=== PATIENT | male | born 1970 | race African-American/Black ===

== ENCOUNTER 2019-12-05 18:05 | Emergency (ER) | payer MEDICAID ==
[~2019-12-05] VITALS: Ht 177.8 cm; Wt 80.0 kg
[2019-12-05 18:19] VITALS: BP 143/77
[2019-12-05] MEDS ORDERED: ALBUTEROL SULFATE 2.5 MG/3 ML NEBU. NEB ONE (19:00)
[2019-12-05] MEDS ORDERED: DEXAMETHASONE SOD PHOS 20 MG/5 ML VIAL. PO ONE (19:00)
--- NOTE | 2019-12-05 19:14 | RAD ---
Exam: Chest 2 views INDICATION: Cough TECHNIQUE: Frontal and lateral views the chest Comparisons: None FINDINGS: The cardiomediastinal silhouette and pulmonary vessels are within normal limits. The lung and pleural spaces are clear. IMPRESSION: No acute cardiopulmonary process. Electronically signed by: Susy Ricketts MD (12/05/2019 7:11 PM) [id number]
[2019-12-05] MEDS ORDERED: ALBU2.5V8 IH (19:41)
[2019-12-05] MEDS ORDERED: OSEL75CA PO (19:41)
--- NOTE | 2019-12-05 19:41 | PHYS DOC ---
Past Medical History Past Medical History: Asthma, Schizophrenia (OG DAWSON APRN) Additional Past Surgical Histo: hernia (OG DAWSON APRN) Smoking Status: Current Every Day Smoker Alcohol Use: Occasionally (OG DAWSON APRN) Attending Signature I have participated in the care of this patient and I have reviewed and agree with all pertinent clinical information above including history, exam, and recommendations. (MENDEL GOMES MD) Adult General Chief Complaint Chief Complaint: FLU SYMPTOM HPI HPI Patient is a 49 year old AA male who presents to the emergency department with complaints of nausea, dry cough, sweats, chills, body aches, tactile fever, nausea, vomiting, and diarrhea for the last 2-3 days. Patient states he has had one episode of vomiting, and one episode of diarrhea in the last 24 hours. He denies any blood in his vomit or stool. Patient denies any abdominal pain. He states he is currently at [facility] for rehabilitation of methamphetamine abuse and they will not allow him to use his inhaler without a prescription. Patient has a history of asthma and states that he has felt wheezy with the onset of the symptoms. Currently rates his discomfort as 7 out of 10 on the pain scale, he denies any alleviating factors. Patient denies any chest pain, or palpitations. He denies any known exposure to influenza or recent travel. (OG DAWSON APRN) Review of Systems Review of Systems All other ROS is negative unless otherwise noted in HPI. (OG DAWSON APRN) Current Medications Current Medications Current Medications Medications (Trade) Dose Ordered Sig/Jeffrey Start Time Stop Time Status Last Admin Dose Admin Albuterol Sulfate (Ventolin Neb Soln) 2.5 mg 1X ONCE 12/05/19 19:00 12/05/19 19:01 DC 12/05/19 19:12 2.5 MG Dexamethasone Sodium Phosphate (Decadron) 10 mg 1X ONCE 12/05/19 19:00 12/05/19 19:01 DC 12/05/19 19:00 10 MG (MENDEL GOMES MD) Allergies Allergies Allergies Coded Allergies Type Severity Reaction Last Updated Verified No Known Drug Allergies 12/05/19 No (MENDEL GOMES MD) Physical Exam Physical Exam See Above Constitutional: Well developed, well nourished, no acute distress, ill appearance, obese HENT: Normocephalic, atraumatic, bilateral external ears normal, bilateral TMs normal, posterior pharynx normal oropharynx moist, nose congested with erythema and edema of the nasal turbinates bilaterally Eyes: PERRLA, conjunctiva injected bilaterally, no discharge. [] Neck: Normal range of motion, no stridor. [] Cardiovascular:Heart rate regular rhythm, no murmur [] Lungs & Thorax: Bilateral breath sounds clear to auscultation in upper lobes, expiratory wheezes and diminished in bilateral posterior lower lobes, Respirations even and unlabored, no retractions, no respiratory distress Skin: Warm, dry, no erythema, no rash. [] Back: No tenderness Extremities: No cyanosis, ROM intact Neurologic: Alert and oriented X 3, no focal deficits noted. [] Psychologic: Affect normal, judgement normal, mood normal. (OG DAWSON APRN) Current Patient Data Vital Signs Vital Signs Date Time Temp Pulse Resp B/P (MAP) Pulse Ox O2 Delivery O2 Flow Rate FiO2 12/05/19 19:15 98 Room Air 12/05/19 18:19 99.4 104 16 143/77 (99) 99.4 (MENDEL GOMES MD) EKG EKG [] (OG DAWSON APRN) Radiology/Procedures Radiology/Procedures PROCEDURE: CHEST PA & LATERAL Exam: Chest 2 views INDICATION: Cough TECHNIQUE: Frontal and lateral views the chest Comparisons: None FINDINGS: The cardiomediastinal silhouette and pulmonary vessels are within normal limits. The lung and pleural spaces are clear. IMPRESSION: No acute cardiopulmonary process. [] (OG DAWSON APRN) Course & Med Decision Making Course & Med Decision Making Pertinent Labs and Imaging studies reviewed. (See chart for details) Patient is a 49-year-old male who presented to the emergency department with complaints of flulike symptoms and shortness of breath for the last 2-3 days. His chest x-ray was unremarkable. He was given a breathing treatment in the emergency department. prescriptions written for an albuterol inhaler and Tamiflu. As patient likely has influenza with a history of asthma. Patient instructed to return to the emergency room if symptoms worsen. [] (OG DAWSON APRN) Dragon Disclaimer Dragon Disclaimer This electronic medical record was generated, in whole or in part, using a voice recognition dictation system. (OG DAWSON APRN) Departure Departure Impression: Primary Impression: Flu-like symptoms Additional Impression: Wheezing on expiration Disposition: HOME, SELF-CARE Condition: STABLE Referrals: NO PCP (PCP) Patient Instructions: Asthma, Adult, [id number], Influenza, Adult, [id number] Additional Instructions: Fill the prescription and take as directed. Alternate Tylenol and ibuprofen as needed for fever. Increase clear fluids and rest. Diet as tolerated. Recommend use of yvha-ohb-obrnxiv flu medications as needed for relief of your symptoms. Follow up with your primary care doctor if symptoms persist, return to the ER symptoms worsen. Scripts Oseltamivir Phosphate (TAMIFLU) 75 Mg Capsule 1 CAP PO BID for 5 Days, #10 CAP 0 Refills Prov: OG DAWSON APRN 12/05/19 Albuterol Sulfate (Proair Hfa) 8.5 Gm Hfa.aer.ad 2 PUFF IH PRN Q4-6HRS PRN for wheezing for 21 Days, #1 INHALER 0 Refills Prov: OG DAWSON APRN 12/05/19 Problem Qualifiers OG DAWSON APRN Dec 05, 2019 19:41 MENDEL GOMES MD Dec 06, 2019 01:45
== END 2019-12-05 19:52 | disposition home or self-care (01) ==
LOC: ER 18:05
DX: R11.2 Nausea with vomiting, unspecified (principal); R50.9 Fever, unspecified; R05 Cough; R19.7 Diarrhea, unspecified; J45.909 Unspecified asthma, uncomplicated; F20.9 Schizophrenia, unspecified; F17.200 Nicotine dependence, unspecified, uncomplicated; Z98.890 Other specified postprocedural states
CPT/HCPCS: 71046; 94640; 99283; J1100; J7613

== ENCOUNTER 2020-05-14 13:23 | Emergency (ER) | payer MEDICAID ==
[~2020-05-14 13:23] MED LIST: ALBU2.5V8 IH; OSEL75CA PO
== END 2020-05-14 13:50 | disposition left against medical advice (07) ==
LOC: ER 13:23
DX: F12.10 Cannabis abuse, uncomplicated (principal); Z53.21 Procedure and treatment not carried out due to patient leaving prior to being seen by health care provider

== ENCOUNTER 2021-01-17 22:28 | Emergency (ER) | payer MEDICAID ==
[~2021-01-17] VITALS: Ht 180.3 cm; Wt 102.2 kg
[2021-01-17 23:33] LABS: BILIRUBIN,URINE MODERATE (NEG); CLARITY,URINE CLEAR; COLOR,URINE AMBER; NITRITE,URINE NEGATIVE (NEG); PROTEIN,URINE NEGATIVE (NEG-TRACE)
[2021-01-17 23:36] LABS: BARBITURATES NEG (NEG); BENZODIAZEPINES NEG (NEG); CANNABINOIDS POS (NEG); COCAINE NEG (NEG); METHADONE NEG (NEG); OPIATES NEG (NEG); PHENCYCLIDINE POS (NEG)
[2021-01-17 23:37] LABS: AMPHETAMINE/METHAMPHETAMINE POS (NEG)
[2021-01-17 23:39] LABS: BACTERIA,URINE 0 /HPF (0-FEW); RBC,URINE 0 /HPF (0-2); WBC,URINE 0 /HPF (0-4)
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
[2021-01-18 07:31] VITALS: BP 138/83
== END 2021-01-18 07:45 | disposition home or self-care (01) ==
LOC: ER 22:28
DX: F31.9 Bipolar disorder, unspecified (principal); F19.10 Other psychoactive substance abuse, uncomplicated; R41.82 Altered mental status, unspecified; J45.909 Unspecified asthma, uncomplicated; F20.9 Schizophrenia, unspecified; F17.200 Nicotine dependence, unspecified, uncomplicated; Z98.890 Other specified postprocedural states
CPT/HCPCS: 80307; 81001; 87426; 99285; U0003

== ENCOUNTER 2021-02-16 21:57 | Emergency (ER) | payer MEDICAID ==
[~2021-02-16] VITALS: Ht 180.3 cm; Wt 95.0 kg
[2021-02-17 00:28] LABS: BILIRUBIN,URINE NEGATIVE (NEG); CLARITY,URINE CLEAR; COLOR,URINE YELLOW; NITRITE,URINE NEGATIVE (NEG); PH,URINE 8.5 (<5.0-8.0); PROTEIN,URINE 100 mg/dL (NEG-TRACE)
[2021-02-17 00:34] LABS: BARBITURATES NEG (NEG); BENZODIAZEPINES NEG (NEG); CANNABINOIDS POS (NEG); COCAINE NEG (NEG); METHADONE NEG (NEG); OPIATES NEG (NEG); PHENCYCLIDINE POS (NEG)
[2021-02-17 00:37] LABS: AMPHETAMINE/METHAMPHETAMINE POS (NEG)
[2021-02-17 00:53] LABS: BASO % 1 % (0-3); EOS # 0.1 x10^3/uL (0.0-0.7); EOS % 1 % (0-3); HEMATOCRIT 42.1 % (39.0-53.0); HEMOGLOBIN 14.2 g/dL (13.0-17.5); LYMPH # 0.8 x10^3/uL (1.0-4.8); LYMPH % 13 % (24-48); MEAN CORPUSCULAR HEMOGLOBIN 30 pg (25-35); MEAN CORPUSCULAR HGB CONC 34 g/dL (31-37); MEAN CORPUSCULAR VOLUME 90 fL (79-100); MONO # 0.3 x10^3/uL (0.0-1.1); MONO % 5 % (0-9); NEUT # 4.8 x10^3/uL (1.8-7.7); NEUT % 80 % (31-73); PLATELET COUNT 252 x10^3/uL (140-400); RED BLOOD COUNT 4.67 x10^6/uL (4.30-5.70); RED CELL DISTRIBUTION WIDTH 14.1 % (11.5-14.5)
--- NOTE | 2021-02-17 00:55 | RAD ---
Single view chest dated 02/17/2021: Comparison made to 12/05/2019 Clinical Indication: Cough. Findings: Single upright portable exam of the chest was performed. Heart and mediastinal contours are stable. L ungs are hyperinflated. There are calcified right hilar lymph nodes with scattered scattered calcifie d granuloma, unchanged. No consolidation or pleural effusion. No pneumothorax. Impression:: No acute radiographic abnormality. Stable findings compared to 12/05/2019. Electronically signed by: Derek Malik MD (02/17/2021 12:52 AM) [email or web address]
[2021-02-17 01:07] LABS: CALCIUM 8.8 mg/dL (8.5-10.1); GFR 94.9; POTASSIUM 3.6 mmol/L (3.5-5.1)
[2021-02-17 01:10] LABS: BACTERIA,URINE 0 /HPF (0-FEW); RBC,URINE 0 /HPF (0-2); SPERM,URINE PRESENT /HPF; WBC,URINE 0 /HPF (0-4)
[2021-02-17 01:12] LABS: ALBUMIN 3.7 g/dL (3.4-5.0); ALBUMIN/GLOBULIN RATIO 1.1 (1.0-1.7); TOTAL BILIRUBIN 0.3 mg/dL (0.2-1.0)
[2021-02-17] MEDS ORDERED: LABETALOL 20 MG/4 ML DISP.SYRIN. IVP ONE ×2 (01:15→03:00)
--- NOTE | 2021-02-17 02:45 | ED.ADGEN ---
Past Medical History Past Medical History: Anxiety, Asthma, Depression, Schizophrenia, Other Past Surgical History: Other Additional Past Surgical Histo: hernia Smoking Status: Current Every Day Smoker Alcohol Use: Occasionally Social History Narrative: [facility] Adult EDM: Chief Complaint: DRUG ABUSE HPI: HPI: Patient is a 50-year-old male who presents to the emergency room requesting help to get his life back on track. Patient states that he knows he needs to quit using drugs and needs help. History is limited as patient appears to be intoxicated or have some psychiatric disorder. Patient is unable to tell me the last time he used. He states he uses all kinds of different drugs. He feels like he needs to go to rehab and detox. He is unsure if he has high blood pressure. He denies any other complaints. Review of Systems: Review of Systems: Complete ROS is negative unless otherwise documented in HPI Current Medications: Current Medications Medications (Trade) Dose Ordered Sig/Jeffrey Start Time Stop Time Status Last Admin Dose Admin Albuterol/ Ipratropium (Duoneb) 3 ml 1X ONCE 02/17/21 05:45 02/17/21 05:46 DC 02/17/21 05:45 3 ML Clonidine HCl (Catapres) 0.1 mg 1X ONCE 02/17/21 04:15 02/17/21 04:16 DC 02/17/21 04:21 0.1 MG Hydralazine HCl (Apresoline Inj) 10 mg 1X ONCE 02/17/21 05:15 02/17/21 05:16 DC 02/17/21 05:25 10 MG Labetalol HCl (Normodyne Iv Push) 10 mg 1X ONCE 02/17/21 03:00 02/17/21 03:01 DC 02/17/21 02:55 10 MG Lorazepam (Ativan) 1 mg 1X ONCE 02/17/21 05:45 02/17/21 05:46 DC 02/17/21 05:45 1 MG Allergies: Allergies: Allergies Coded Allergies Type Severity Reaction Last Updated Verified No Known Drug Allergies 12/05/19 No Physical Exam: PE: General: Awake, alert, NAD. Well Nourished, well hydrated. Cooperative HEENT: Atraumatic, EOMI, PERRL, airway patent, moist oral mucosa Neck: Supple, trachea midline Respiratory: CTA bilaterally, normal effort, no wheezing/crackles CV: Tachycardic, no murmur, cap refill <2 GI: Soft, nondistended, nontender, no masses MSK: No obvious deformities Skin: Warm, dry, intact Neuro: A&O x3, speech NL, sensory and motor grossly intact, no focal deficits Psych: Paranoid, not suicidal or homicidal Current Patient Data: Labs: Laboratory Tests Test 02/17/21 00:02 02/17/21 00:45 02/17/21 00:49 Urine Collection Type Unknown Urine Color Yellow Urine Clarity Clear Urine pH 8.5 (<5.0-8.0) Urine Specific [place] >=1.030 (1.000-1.030) Urine Protein 100 mg/dL (NEG-TRACE) Urine Glucose (UA) Negative mg/dL (NEG) Urine Ketones (Stick) Negative mg/dL (NEG) Urine Blood Negative (NEG) Urine Nitrite Negative (NEG) Urine Bilirubin Negative (NEG) Urine Urobilinogen Dipstick 1.0 mg/dL (0.2 mg/dL) Urine Leukocyte Esterase Negative (NEG) Urine RBC 0 /HPF (0-2) Urine WBC 0 /HPF (0-4) Urine Squamous Epithelial Cells Occ /LPF Urine Bacteria 0 /HPF (0-FEW) Urine Mucus Mod /LPF Urine Sperm Present /HPF Urine Opiates Screen Neg (NEG) Urine Methadone Screen Neg (NEG) Urine Barbiturates Neg (NEG) Urine Phencyclidine Screen Pos (NEG) Urine Amphetamine/Methamphetamine Pos (NEG) Urine Benzodiazepines Screen Neg (NEG) Urine Cocaine Screen Neg (NEG) Urine Cannabinoids Screen Pos (NEG) Urine Ethyl Alcohol Neg (NEG) White Blood Count 6.0 x10^3/uL (4.0-11.0) Red Blood Count 4.67 x10^6/uL (4.30-5.70) Hemoglobin 14.2 g/dL (13.0-17.5) Hematocrit 42.1 % (39.0-53.0) Mean Corpuscular Volume 90 fL (79-100) Mean Corpuscular Hemoglobin 30 pg (25-35) Mean Corpuscular Hemoglobin Concent 34 g/dL (31-37) Red Cell Distribution Width 14.1 % (11.5-14.5) Platelet Count 252 x10^3/uL (140-400) Neutrophils (%) (Auto) 80 % (31-73) H Lymphocytes (%) (Auto) 13 % (24-48) L Monocytes (%) (Auto) 5 % (0-9) Eosinophils (%) (Auto) 1 % (0-3) Basophils (%) (Auto) 1 % (0-3) Neutrophils # (Auto) 4.8 x10^3/uL (1.8-7.7) Lymphocytes # (Auto) 0.8 x10^3/uL (1.0-4.8) L Monocytes # (Auto) 0.3 x10^3/uL (0.0-1.1) Eosinophils # (Auto) 0.1 x10^3/uL (0.0-0.7) Basophils # (Auto) 0.0 x10^3/uL (0.0-0.2) Sodium Level 143 mmol/L (136-145) Potassium Level 3.6 mmol/L (3.5-5.1) Chloride Level 109 mmol/L (98-107) H Carbon Dioxide Level 25 mmol/L (21-32) Anion Gap 9 (6-14) Blood Urea Nitrogen 11 mg/dL (8-26) Creatinine 1.0 mg/dL (0.7-1.3) Estimated GFR (Cockcroft-Gault) 94.9 BUN/Creatinine Ratio 11 (6-20) Glucose Level 129 mg/dL (70-99) H Calcium Level 8.8 mg/dL (8.5-10.1) Total Bilirubin 0.3 mg/dL (0.2-1.0) Aspartate Amino Transferase (AST) 19 U/L (15-37) Alanine Aminotransferase (ALT) 25 U/L (16-63) Alkaline Phosphatase 67 U/L (46-116) Total Protein 7.0 g/dL (6.4-8.2) Albumin 3.7 g/dL (3.4-5.0) Albumin/Globulin Ratio 1.1 (1.0-1.7) Ethyl Alcohol Level < 10 mg/dL (0-10) SARS-CoV-2 RNA (ADRIAN) Negative (Negative) SARS-CoV-2 Antigen (Rapid) Negative (NEGATIVE) Laboratory Tests 02/17/21 00:45 Laboratory Tests 02/17/21 00:45 Vital Signs: Vital Signs Date Time Temp Pulse Resp B/P (MAP) Pulse Ox O2 Delivery O2 Flow Rate FiO2 02/17/21 08:19 72 166/91 (116) 100 Room Air 02/17/21 06:49 27 02/16/21 23:27 98.0 98.0 EKG: EKG: [] Heart Score: C/O Chest Pain: N/A Risk Factors: Risk Factors: DM, Current or recent (<one month) smoker, HTN, HLP, family history of CAD, obesity. Risk Scores: Score 0 - 3: 2.5% MACE over next 6 weeks - Discharge Home Score 4 - 6: 20.3% MACE over next 6 weeks - Admit for Clinical Observation Score 7 - 10: 72.7% MACE over next 6 weeks - Early Invasive Strategies Radiology/Procedures: Radiology/Procedures: [] Course & Med Decision Making: Course & Med Decision Making Pertinent Labs and Imaging studies reviewed. (See chart for details) Patient is a 50-year-old male who presents to the emergency room requesting help to detox. Drug screen is positive for PCP and methamphetamines. Patient does have some hypertension here in the emergency room. He is not currently on any treatment for this. He was given labetalol here in the emergency room. Lab work was ordered to clear patient for possible placement. Patient responded minimally to labetalol and clonidine. He was given hydralazine and Ativan. It is unclear at this time whether his resistance to blood pressure medication is due to his polysubstance abuse. Patient is asymptomatic from his hypertension. Patient discussed with oncoming physician Dr. Dia who will assume care. I received signout from Dr. Sylvester at shift change. Patient reevaluated by myself. Patient with history of paranoid schizophrenia and reports he has not been taking his olanzapine 10 mg. States he relapsed a few days ago, drink alcohol, took K2 and smoked meth. Complains of restoration people out to get him. Is requesting to go to [facility]. States he refills his Zyprexa at [facility]. Covid negative. Patient is medically cleared-has asymptomatic hypertension with no endorgan damage. Patient was assessed by the PAT team. Patient with paranoia but no SI or HI or psychosis. Patient is not danger to himself or others. Will be given a cab voucher to [facility]. Will discharge home with strict ED return precautions were given for psychosis, SI, HI, head injury/trauma or drug use. Encouraged urgent outpatient follow-up with PMD in 24 to 48 hours and psychiatry for outpatient management of schizophrenia. Life- threatening processes were considered but are low suspicion at this time, given history, physical exam and ED workup. Pt was educated on all prescription medications and adverse effects. All patient's questions were answered and pt was stable at time of discharge. Life/limb-threatening differential includes but is not limited to, end organ damage/sepsis, trauma/abuse/neglect, neurologic deficit, alcohol/drug ingestion, toxidrome, suicidal/homicidal ideations plans or attempts, psychosis or mental illness resulting in self neglect and inability to care for self. I spoken with the patient and her caregivers. I explained the patient's condition, diagnoses and treatment plan based on the information available to me at this time. I have answered the patient and her caregiver's questions and addressed any concerns. The patient and her caregivers have a good understanding of patient's diagnosis, condition and treatment plan as can be expected at this point. Vital signs have been stable. Patient's condition is stable and appropriate for discharge from the emergency department. Patient will pursue further outpatient evaluation with primary care physician or other designated or consulting physician as outlined in the discharge instructions. The patient and/or caregivers are agreeable to this plan of care and follow-up instructions have been explained in detail. The patient and/or caregivers have received these instructions in written form and have expressed an understanding of the discharge instructions. The patient and/or caregivers are aware that any significant change of condition or worsening of symptoms should prompt immediate return to this or the closest emergency department or call to 911. Tennille Disclaimer: Tennille Disclaimer: This electronic medical record was generated, in whole or in part, using a voice recognition dictation system. Departure Departure Impression: Primary Impression: Paranoia Additional Impressions: Polysubstance abuse Hypertension Disposition: 02 SHORT TERM HOSPITAL (can voucher to [facility]) Condition: STABLE Referrals: NO PCP (PCP) Follow-up with your primary care physician in 24 to 48 hours or FOLLOW UP WITH FAMILY MEDICINE: Family Medicine Address: [address] [address] Phone: [phone] Patient Instructions: Hypertension, Polysubstance Abuse, Schizophrenia Additional Instructions: FOLLOW UP WITH PSYCHIATRY: Dr. German Bucio Psychiatry Specialist [address] [place], [place] [address] [facility] [address] [place] [address] EMERGENCY DEPARTMENT GENERAL DISCHARGE INSTRUCTIONS Thank you for coming to [facility] Emergency Department (ED) today and trusting us with you care. We trust that you had a positive experience in our Emergency Department. If you wish to speak to the department management, you may call the Director at [phone]. YOUR FOLLOW UP INSTRUCTIONS ARE FOLLOWS: 1. Do you have a private Doctor? If you do not have a private doctor, please ask for a resource list of physicians or clinics that may be able to assist you with follo w up care. 2. The Emergency Physicain has interpreted your x-rays. The X-Ray specialist will also review them. If there is a change in the findings, you will be notified in 48 hours when at all possible. 3. A lab test or culture has been done, your results will be reviewed and you will be notified if you need a change in treatment. ADDITIONAL INSTRUCTIONS AND INFORMATION: 1. Your care today has been supervised by a physician who is specially trained in emergency care. Many problems require more than one evaluation for a complete diagnosis and treatment. We recommend that you schedule your follow up appointment as recommended to ensure complete treatment of you illness or injury. If you are unable to obtain follow up care and continue to have a problem, or if your condition worsens, we recommend that you return to the ED. 2. We are not able to safely determine your condition over the phone nor are we able to give sound medical advice over the phone. For these safety reasons, if you call for medical advice we will ask you to come to the ED for further evaluation. 3. If you have any questions regarding these discharge instructions please call the ED at [phone]. SAFETY INFORMATION: In the interest of safety, wellness, and injury prevention; we encourage you to wear your sealbelt, if you smoke; quite smoking, and we encourage family to use a pro tective helmet for bicycling and other sporting events that present an increased risk for head injury. IF YOUR SYMPTOMS WORSEN OR NEW SYMPTOMS DEVELOP, OR YOU HAVE CONCERNS ABOUT YOUR CONDITION; OR IF YOUR CONDITION WORSENS WHILE YOU ARE WAITING FOR YOUR FOLLOW UP APPOINTMENT; EITHER CONTACT YOUR PRIMARY CARE DOCTOR, THE PHYSICIAN WHOSE NAME AND NUMBER YOU WERE GIVEN, OR RETURN TO THE ED IMMEDIATELY. Problem Qualifiers LEANA SYLVESTER MD Feb 17, 2021 02:44 GRZEGORZ DIA DO Feb 17, 2021 07:29
[2021-02-17] MEDS ORDERED: cloNIDine HCL 0.1 MG TABLET PO ONE (04:15)
[2021-02-17] MEDS ORDERED: hydrALAZINE 20 MG/ML VIAL. IVP ONE (05:15)
[2021-02-17] MEDS ORDERED: IPRATRPIUM/ALBUTEROL 0.5/2.5MG 3 ML NEBU. NEB ONE (05:45)
[2021-02-17 08:19] VITALS: BP 166/91
[2021-02-17] MEDS ORDERED: VENTOLIN HFA18 GM INH (10:06)
--- NOTE | 2021-02-17 16:42 | NUR ---
IP: Phone number listed is of a friend. Pt is homeless and shows up periodically. Instructed friend to have pt call when he is available for his covid results.
== END 2021-02-17 10:40 | disposition short-term general hospital (02) ==
LOC: ER 21:57
DX: F22 Delusional disorders (principal); Z20.822 Contact with and (suspected) exposure to COVID-19; F19.10 Other psychoactive substance abuse, uncomplicated; I10 Essential (primary) hypertension; J45.909 Unspecified asthma, uncomplicated; F20.9 Schizophrenia, unspecified; F17.200 Nicotine dependence, unspecified, uncomplicated
CPT/HCPCS: 36415; 71045; 80053; 80307; 81001; 85025; 87426; 94640; 96374; 96375; 96376; 99284; G0480; J0360; J3490; U0003; U0005